=== PATIENT | male | born 1940 | race Caucasian/White ===

== ENCOUNTER 2017-05-23 13:11 | Emergency (ER) | payer OTHER ==
[~2017-05-23] VITALS: Ht 170.2 cm; Wt 72.6 kg
[2017-05-23] MEDS ORDERED: NORVASC10 MG PO (13:19)
== END 2017-05-23 23:23 | disposition home or self-care (01) ==
LOC: ER 13:11
DX: R10.11 Right upper quadrant pain (principal); R10.12 Left upper quadrant pain; J11.1 Influenza due to unidentified influenza virus with other respiratory manifestations

== ENCOUNTER 2017-06-21 11:06 | Inpatient (IN) | payer OTHER ==
[~2017-06-21] VITALS: Ht 170.2 cm; Wt 69.9 kg
[~2017-06-21 11:06] MED LIST: NORVASC10 MG PO
[2017-07-02] MEDS ORDERED: HYOSCYAMINE0.125 M1 SL (09:02)
[2017-07-02] MEDS ORDERED: XOPENEX0.63 MG/3 IH (09:03)
[2017-07-02] MEDS ORDERED: XARELTO20 MG PO (09:04)
[2017-07-02] MEDS ORDERED: NORVASC10 MG PO (09:04)
[2017-07-02] MEDS ORDERED: CHOLESTYRAMINE L4 GM PO (09:05)
[2017-07-02] MEDS ORDERED: SPIRONOLACTONE50 MG PO (09:06)
[2017-07-02] MEDS ORDERED: Ferro-Plex CAPLET PO (09:06)
== END 2017-07-02 19:12 | disposition home or self-care (01) | DRG 840 ==
LOC: ER 11:06 → MEDI 06-22 09:26
PROC: B54CZZZ Ultrasonography of Left Lower Extremity Veins (ICD-10-PCS; 2017-06-22)
PROC: 3E0F7GC Introduction of Other Therapeutic Substance into Respiratory Tract, Via Natural or Artificial Opening (ICD-10-PCS; 2017-06-22)
PROC: BF37ZZZ Magnetic Resonance Imaging (MRI) of Pancreas (ICD-10-PCS; 2017-06-23)
PROC: BW30Y0Z Magnetic Resonance Imaging (MRI) of Abdomen using Other Contrast, Unenhanced and Enhanced (ICD-10-PCS; 2017-06-23)
PROC: 30233N1 Transfusion of Nonautologous Red Blood Cells into Peripheral Vein, Percutaneous Approach (ICD-10-PCS; 2017-06-24)
PROC: BW24Y0Z Computerized Tomography (CT Scan) of Chest and Abdomen using Other Contrast, Unenhanced and Enhanced (ICD-10-PCS; 2017-06-25)
PROC: B32TYZZ Computerized Tomography (CT Scan) of Left Pulmonary Artery using Other Contrast (ICD-10-PCS; 2017-06-25)
PROC: B32SYZZ Computerized Tomography (CT Scan) of Right Pulmonary Artery using Other Contrast (ICD-10-PCS; 2017-06-25)
PROC: 07DR3ZX Extraction of Iliac Bone Marrow, Percutaneous Approach, Diagnostic (ICD-10-PCS; principal; 2017-06-26)
PROC: 0F798DZ Dilation of Common Bile Duct with Intraluminal Device, Via Natural or Artificial Opening Endoscopic (ICD-10-PCS; 2017-06-26)
PROC: 0FB98ZX Excision of Common Bile Duct, Via Natural or Artificial Opening Endoscopic, Diagnostic (ICD-10-PCS; 2017-06-26)
PROC: 4A033R1 Measurement of Arterial Saturation, Peripheral, Percutaneous Approach (ICD-10-PCS; 2017-06-29)
DX: C90.00 Multiple myeloma not having achieved remission (principal); J18.9 Pneumonia, unspecified organism; I26.99 Other pulmonary embolism without acute cor pulmonale; K83.1 Obstruction of bile duct; C22.1 Intrahepatic bile duct carcinoma; K83.0 Cholangitis; I82.512 Chronic embolism and thrombosis of left femoral vein; J98.11 Atelectasis; J44.1 Chronic obstructive pulmonary disease with (acute) exacerbation; J90 Pleural effusion, not elsewhere classified; R18.8 Other ascites; E86.0 Dehydration; D63.0 Anemia in neoplastic disease; D47.2 Monoclonal gammopathy; E83.39 Other disorders of phosphorus metabolism; R09.02 Hypoxemia; E87.6 Hypokalemia; K74.69 Other cirrhosis of liver; Z87.891 Personal history of nicotine dependence; N50.89 Other specified disorders of the male genital organs; N48.89 Other specified disorders of penis
CPT/HCPCS: 74182

== ENCOUNTER 2017-07-07 13:50 | Emergency (ER) | payer OTHER ==
[~2017-07-07] VITALS: Ht 170.2 cm; Wt 72.6 kg
[~2017-07-07 13:50] MED LIST changes: +CHOLESTYRAMINE L4 GM PO; +Ferro-Plex CAPLET PO; +HYOSCYAMINE0.125 M1 SL; +SPIRONOLACTONE50 MG PO; +XARELTO20 MG PO; +XOPENEX0.63 MG/3 IH
== END 2017-07-07 22:50 | disposition home or self-care (01) ==
LOC: ER 13:50
DX: E86.0 Dehydration (principal); C22.1 Intrahepatic bile duct carcinoma; C90.00 Multiple myeloma not having achieved remission

== ENCOUNTER 2017-07-10 23:08 | Inpatient (IN) | payer OTHER ==
[~2017-07-10] VITALS: Ht 170.2 cm; Wt 65.8 kg
[2017-07-10] MEDS ORDERED: LASIX20 MG (23:33)
[2017-07-24] MEDS ORDERED: Coreg 6.25MG TABLET PO (08:55)
[2017-07-24] MEDS ORDERED: SPIRONOLACTONE25 MG PO (08:55)
[2017-07-24] MEDS ORDERED: LASIX20 MG PO (08:55)
== END 2017-07-24 19:42 | disposition other institution (70) | DRG 280 ==
LOC: ER 23:08 → SEC-K 07-11 08:57 → MEDJ 07-11 08:57
PROC: B246ZZZ Ultrasonography of Right and Left Heart (ICD-10-PCS; principal; 2017-07-11)
PROC: 4A033R1 Measurement of Arterial Saturation, Peripheral, Percutaneous Approach (ICD-10-PCS; 2017-07-11)
PROC: 3E0F7GC Introduction of Other Therapeutic Substance into Respiratory Tract, Via Natural or Artificial Opening (ICD-10-PCS; 2017-07-11)
PROC: 3E0336Z Introduction of Nutritional Substance into Peripheral Vein, Percutaneous Approach (ICD-10-PCS; 2017-07-15)
PROC: 02H633Z Insertion of Infusion Device into Right Atrium, Percutaneous Approach (ICD-10-PCS; 2017-07-17)
PROC: 30233N1 Transfusion of Nonautologous Red Blood Cells into Peripheral Vein, Percutaneous Approach (ICD-10-PCS; 2017-07-19)
PROC: 30233R1 Transfusion of Nonautologous Platelets into Peripheral Vein, Percutaneous Approach (ICD-10-PCS; 2017-07-23)
DX: I21.4 Non-ST elevation (NSTEMI) myocardial infarction (principal); I50.23 Acute on chronic systolic (congestive) heart failure; J18.9 Pneumonia, unspecified organism; C90.00 Multiple myeloma not having achieved remission; J44.1 Chronic obstructive pulmonary disease with (acute) exacerbation; C22.1 Intrahepatic bile duct carcinoma; J90 Pleural effusion, not elsewhere classified; I13.0 Hypertensive heart and chronic kidney disease with heart failure and stage 1 through stage 4 chronic kidney disease, or unspecified chronic kidney disease; E46 Unspecified protein-calorie malnutrition; J44.0 Chronic obstructive pulmonary disease with (acute) lower respiratory infection; R60.1 Generalized edema; K74.69 Other cirrhosis of liver; D63.0 Anemia in neoplastic disease; Z86.718 Personal history of other venous thrombosis and embolism; Z86.711 Personal history of pulmonary embolism; Z79.01 Long term (current) use of anticoagulants; Z87.891 Personal history of nicotine dependence; I95.89 Other hypotension; E86.0 Dehydration; N18.3 Chronic kidney disease, stage 3 (moderate); Z74.01 Bed confinement status; I24.9 Acute ischemic heart disease, unspecified; K86.89 Other specified diseases of pancreas; E87.6 Hypokalemia; E83.39 Other disorders of phosphorus metabolism; D69.59 Other secondary thrombocytopenia; J20.9 Acute bronchitis, unspecified; D47.2 Monoclonal gammopathy; L89.322 Pressure ulcer of left buttock, stage 2